=== PATIENT | male | born 1985 | race Caucasian/White ===

== ENCOUNTER 2021-10-18 20:50 | Emergency (ER) | payer OTHER, SELFPAY | END 2021-10-18 22:30 | disposition left against medical advice (07) | LOC: MADERS 20:50 | DX: Z53.21 Procedure and treatment not carried out due to patient leaving prior to being seen by health care provider (principal) ==

== ENCOUNTER 2021-10-22 19:26 | Emergency (ER) | payer OTHER, SELFPAY | END 2021-10-22 20:01 | disposition home or self-care (01) | LOC: MADERS 19:26 | DX: S43.102A Unspecified dislocation of left acromioclavicular joint, initial encounter (principal); F17.210 Nicotine dependence, cigarettes, uncomplicated; V89.2XXA Person injured in unspecified motor-vehicle accident, traffic, initial encounter | CPT/HCPCS: 99283 ==